=== PATIENT | female | born 1950 | race Caucasian/White ===

== ENCOUNTER 2022-01-25 12:05 | Outpatient (CLI) | payer MEDICARE | END 2022-01-25 12:06 | disposition home or self-care (01) | LOC: SCSRAD 12:05 | PROVIDERS: ATTEND Family Medicine | DX: M25.512 Pain in left shoulder (principal); M19.012 Primary osteoarthritis, left shoulder ==

== ENCOUNTER 2022-08-21 10:12 | Outpatient (CLI) | payer MEDICARE, OTHER ==
[2022-08-21 11:52] LABS: #Basophils 0.1 10x3/uL (0.0-0.2); #Eosinphils 0.1 10x3/uL (0.0-0.5); #Monocytes 0.5 10x3/uL (0.0-1.1); #Neutrophils 2.8 10x3/uL (1.5-8.4); %Basophils 0.9 % (0.0-2.0); %Eosinophils 2.3 % (0.0-6.0); %Lymphocytes 40.2 % (18.0-47.0); %Monocytes 8.7 % (0.0-10.0); %Neutrophils 47.6 % (40.0-75.0); Hemoglobin 13.5 g/dL (12.0-15.5); Mean Corpuscular HGB CONC 32.2 g/dL (32.0-36.0); Mean Corpuscular Volume 89.9 fl (81.6-98.3); Mean Platelet Volume 11.2 fl (7.4-10.4); Platelet Count 169 10x3/uL (150-450); RBC Distribution Width 13.9 % (11.5-14.5); Red Blood Cell (RBC) Count 4.66 10x6/uL (3.90-5.03); White Blood Cell (WBC) Count 5.8 10x3/uL (3.5-10.5)
[2022-08-21 12:07] LABS: Anion Gap 14 mmol/L (10-20); BUN (Urea Nitrogen) 20 mg/dL (9.8-20.1); Calc. Creatinine Clearance 0 mL/min (70-130); Calcium 9.5 mg/dL (7.8-10.44); Carbon Dioxide 26 mmol/L (23-31); Chloride 104 mmol/L (98-107); Estimated GFR 63; Glucose 91 mg/dL (83-110); Potassium 4.4 mmol/L (3.5-5.1); Sodium 140 mmol/L (136-145)
== END 2022-08-21 10:13 | disposition home or self-care (01) ==
LOC: LABBT 10:12
PROVIDERS: ATTEND Orthopaedic Surgery
DX: Z01.818 Encounter for other preprocedural examination (principal); M12.812 Other specific arthropathies, not elsewhere classified, left shoulder
CPT/HCPCS: 80048; 85025; 93005; 93010

== ENCOUNTER 2022-08-22 05:57 | Observation (INO) | payer MEDICARE, OTHER ==
[2022-08-21 12:44] VITALS: BMI 29.3
[2022-08-22] MEDS ORDERED: SUGAMMADEX SODIUM 200 MG/2 ML VIAL ONE (06:13)
[2022-08-22] MEDS ORDERED: Fentanyl 250 MCG/5 ML VIAL ONE (06:13)
[2022-08-22] MEDS ORDERED: Lidocaine 1% (PF) 30 ML VIAL ONE (06:17)
[2022-08-22] MEDS ORDERED: Ropivacaine 0.2% HCl/PF 20 ML ONE ×2 (06:17→09:27)
[2022-08-22] MEDS ORDERED: Ropivacaine 0.5% HCl/PF (150 MG/30 ML VIAL) ONE (06:17)
[2022-08-22] MEDS ORDERED: Fentanyl 100 MCG/2 ML VIAL ONE (06:17)
[2022-08-22] MEDS ORDERED: Midazolam HCl 2 mg/2 ml Vial ONE (06:17)
[2022-08-22] MEDS ORDERED: Vancomycin (BATCH) 1.5 GRAM/300 ML BAG ONE (06:29)
[2022-08-22] MEDS ORDERED: Tranexamic Acid 1,000 MG/10 ML VIAL ONE (06:29)
[2022-08-22] MEDS ORDERED: Sodium Chloride 0.9% 100 ML ONE ×2 (06:29→07:23)
[2022-08-22] MEDS ORDERED: HYDROcodone/Acetaminophen 7.5/325 mg Tablet PO PRN ×2 (06:51)
[2022-08-22] MEDS ORDERED: [UNRECOGNIZED DRUG - REMARK] EA NARE PRN (06:52)
[2022-08-22] MEDS ORDERED: Aspirin 81 mg Enteric Coated Tablet PO SCH (07:00)
[2022-08-22 07:13] LABS: SARS-CoV-2 NAA Rapid Test Not Detected (NotDetected)
[2022-08-22] MEDS ORDERED: CEFAZOLIN 2 GM VIAL ONE (07:23)
[2022-08-22] MEDS ORDERED: Ondansetron PF 4 MG/2 ML Vial ONE (07:30)
[2022-08-22] MEDS ORDERED: Lidocaine 1% PF 5 ML VIAL ONE (07:30)
[2022-08-22] MEDS ORDERED: Dexamethasone 20 MG/5 ML VIAL ONE (07:30)
[2022-08-22] MEDS ORDERED: PHENYLEPHRINE-NS 100 MCG/ML 10 ML SYRINGE ONE (07:30)
[2022-08-22] MEDS ORDERED: ePHEDrine 50 MG/ML VIAL ONE (07:30)
[2022-08-22] MEDS ORDERED: Rocuronium Bromide 10 MG/ML (10ML VIAL) ONE (07:30)
[2022-08-22] MEDS ORDERED: Glycopyrrolate 0.2 MG/ML 5 ML SYRINGE ONE (07:30)
[2022-08-22] MEDS ORDERED: PROPOFOL 200 MG/20 ML VIAL ONE (07:30)
[2022-08-22] MEDS ORDERED: Fentanyl 100 MCG/2 ML VIAL IV PRN (07:34)
[2022-08-22] MEDS ORDERED: Ropivacaine 0.2% 550 ML 550 ML NERVE BLCK SCH (07:45)
[2022-08-22] MEDS ORDERED: Promethazine HCl 25 MG/ML VIAL IM PRN (07:45)
[2022-08-22] MEDS ORDERED: Ondansetron PF 4 MG/2 ML Vial IVP PRN (07:45)
[2022-08-22] MEDS ORDERED: HYDROcodone/Acetaminophen 10/325 mg Tablet PO PRN (07:45)
[2022-08-22] MEDS ORDERED: traMADol HCl 50 MG TAB PO PRN ×2 (07:45)
[2022-08-22] MEDS ORDERED: Zolpidem Tartrate 5 MG TAB PO PRN (07:45)
[2022-08-22] MEDS ORDERED: Non-Formulary Item 1 EACH (Cholecalciferol (Vitamin D3) [Vitamin D3] 50 MCG Capsule) PO SCH (09:00)
[2022-08-22] MEDS ORDERED: fentaNYL PF 100 MCG/2 ML SYRINGE ONE (09:31)
[2022-08-22] MEDS: CEFAZOLIN 2 GM in Sodium Chloride 0.9% 100 ML IVPB SCH ×2 (15:43→22:39)
[2022-08-22] MEDS: HYDROcodone/Acetaminophen 10/325 mg Tablet PO PRN ×2 (15:46→22:39)
[2022-08-22] MEDS: Amlodipine 5 MG TAB PO SCH (17:57)
[2022-08-22] MEDS: Cholecalciferol 1,000 UNITS (25 MCG) TAB PO SCH (17:58)
[2022-08-22] MEDS: Escitalopram Oxalate 20 mg Tablet PO SCH (17:59)
[2022-08-22] MEDS: Lisinopril 20 MG TAB PO SCH (17:59)
[2022-08-22] MEDS: Fluticasone Propionate Nasal Spray 16 gm Bottle NASAL SCH (17:59)
[2022-08-22] MEDS: Ketorolac Tromethamine 30 MG/ML VIAL IVP SCH ×3 (18:00→23:23)
[2022-08-22] MEDS ORDERED: Non-Formulary Item 1 EACH (Zolpidem Tartrate [Ambien] 10 MG Tablet) PO SCH (21:00)
[2022-08-22] MEDS ORDERED: Zolpidem Tartrate 5 MG TAB PO SCH (21:00)
[2022-08-23] MEDS: Ketorolac Tromethamine 30 MG/ML VIAL IVP SCH (05:28)
[2022-08-23] MEDS: HYDROcodone/Acetaminophen 10/325 mg Tablet PO PRN (05:30)
[2022-08-23 08:20] VITALS: TEMP 97.7
[2022-08-23] MEDS: Amlodipine 5 MG TAB PO SCH (09:08)
[2022-08-23] MEDS: Lisinopril 20 MG TAB PO SCH (09:09)
[2022-08-23] MEDS: Escitalopram Oxalate 20 mg Tablet PO SCH (09:09)
[2022-08-23] MEDS: Cholecalciferol 1,000 UNITS (25 MCG) TAB PO SCH (09:10)
[2022-08-23 09:12] VITALS: BP 129/80
[2022-08-23] MEDS: Fluticasone Propionate Nasal Spray 16 gm Bottle NASAL SCH (09:41)
== END 2022-08-23 09:45 | disposition home or self-care (01) ==
LOC: SDC 05:57 → SURG A 14:04
PROVIDERS: ADMIT Orthopaedic Surgery; ATTEND Orthopaedic Surgery
PROC: 0RRK00Z Replacement of Left Shoulder Joint with Reverse Ball and Socket Synthetic Substitute, Open Approach (ICD-10-PCS; principal; 2022-08-22)
DX: M12.812 Other specific arthropathies, not elsewhere classified, left shoulder (principal); M75.22 Bicipital tendinitis, left shoulder; M75.102 Unspecified rotator cuff tear or rupture of left shoulder, not specified as traumatic; I12.9 Hypertensive chronic kidney disease with stage 1 through stage 4 chronic kidney disease, or unspecified chronic kidney disease; N18.30 Chronic kidney disease, stage 3 unspecified; Z79.899 Other long term (current) drug therapy; Z88.5 Allergy status to narcotic agent; Z20.822 Contact with and (suspected) exposure to COVID-19
CPT/HCPCS: 23472; 96374; 96375; 96376 ×2; 97110; 97116; 97535; A4306; C1713 ×4; C1776 ×4; G0378 ×2; J3370; U0002; J1100; J1885; J2001; J2250; J2405; J2704; J2795; J3010; J3490